=== PATIENT | female | born 1950 | race Caucasian/White ===

== ENCOUNTER → 2016-03-29 | Outpatient (CLI) | payer OTHER, MEDICAID ==
[~2016-03-29] MED LIST: HYDR-971 PO
--- NOTE | 2016-03-29 15:31 | RAD ---
EXAM: DIGITAL SCREEN BILAT W/CAD HISTORY: Routine Screening. COMPARISON: Priors including 10/30/2011 and 09/18/2010 Standard mammographic views are obtained of the bilateral breasts. This study was interpreted with the benefit of Computerized Aided Detection (CAD). FINDINGS: The breast parenchyma Is heterogenously dense, which could reduce sensitivity of mammography. Breast parenchyma level III.. There is repeat demonstration of asymmetry within the right lateral breast with architectural distortion and scattered calcifications. This has been present since at least 2010. There are also some scattered calcifications seen bilaterally. No definite new worrisome mass. IMPRESSION: No definite new suspicious mass. Repeat demonstration of architectural distortion and calcifications within the right lateral breast but these had been present for several years therefore could be from benign causes such as scarring. BI-RADS CATEGORY: 2 BENIGN FINDING RECOMMENDED FOLLOW-UP: 12M 12 MONTH FOLLOW-UP PQRS compliance statement: Patient information was entered into a reminder system with a target due date for the next mammogram. Mammography is a sensitive method for finding small breast cancers, but it does not detect them all and is not a substitute for careful clinical examination. A negative mammogram does not negate a clinically suspicious finding and should not result in delay in biopsying a clinically suspicious abnormality. "Our facility is accredited by the [employer] Mammography Program."
== END | disposition home or self-care (01) ==
LOC: MAMMO 13:01
PROVIDERS: ATTEND Family Medicine
DX: Z12.31 Encounter for screening mammogram for malignant neoplasm of breast (principal)
CPT/HCPCS: G0202; 77067

== ENCOUNTER → 2017-09-09 | Outpatient (CLI) | payer OTHER, MEDICAID | END | disposition home or self-care (01) | LOC: KCIC DEXA 10:53 | DX: Z13.820 Encounter for screening for osteoporosis (principal); M85.88 Other specified disorders of bone density and structure, other site; Z78.0 Asymptomatic menopausal state | CPT/HCPCS: 77080 ==

== ENCOUNTER → 2018-09-30 | Outpatient (CLI) | payer OTHER, MEDICAID ==
[~2018-09-30] MED LIST changes: +HYDR-3164 PO; -HYDR-971 PO
--- NOTE | 2018-09-30 11:07 | RAD ---
DATE: 09/30/2018. EXAM: DIGITAL DIAGNOSTIC RT, BREAST RIGHT HISTORY: Abnormal mammogram. COMPARISON: Most recent screening mammogram from 09/08/2018. This study was interpreted with the benefit of Computerized Aided Detection (CAD). FINDINGS: Breast Density: HETERO The breast parenchyma Is heterogeneously dense, which could reduce sensitivity of mammography. Breast parenchyma level C. Redemonstrated is an area of architectural distortion with intraluminal calcifications in the retroareolar region of the right breast. Ultrasound TECHNIQUE: Grayscale and color Doppler images of the right retroareolar breast. FINDINGS: There is a hypoechoic mass at 9:00 lesion in the retroareolar right breast approximately measuring 1.4 x 0.7 x 0.6 cm which is taller than wider. This corresponds to the abnormality seen on mammogram. IMPRESSION: Right retroareolar breast mass. BI-RADS CATEGORY: 4 SUSPICIOUS ABNORMALITY-BIOPSY SHOULD BE CONSIDERED RECOMMENDED FOLLOW-UP: BIO BIOPSY RECOMMENDED. Ultrasound guided biopsy recommended. PQRS compliance statement: Patient information was entered into a reminder system with a target due date for the next mammogram. Mammography is a sensitive method for finding small breast cancers, but it does not detect them all and is not a substitute for careful clinical examination. A negative mammogram does not negate a clinically suspicious finding and should not result in delay in biopsying a clinically suspicious abnormality. "Our facility is accredited by the [employer] Mammography Program." Findings discussed with Dr. Pastor's office and patient in person on 09/30/2018 at 11:03 AM.
== END | disposition home or self-care (01) ==
LOC: MAMMO 10:04
PROVIDERS: ATTEND Family Medicine
DX: N63.11 Unspecified lump in the right breast, upper outer quadrant (principal); N64.89 Other specified disorders of breast
CPT/HCPCS: 76641; 77065

== ENCOUNTER → 2018-10-30 | Outpatient (CLI) | payer OTHER, MEDICAID ==
--- NOTE | 2018-10-31 10:41 | RAD ---
CLINICAL INDICATION: Right breast mass, biopsy PRE-PROCEDURAL CONSULTATION: Details of the procedure and possible limitations and complications were discussed with the patient. After addressing her questions and concerns, written informed consent was obtained. A time out was then taken to verify patient's name and date of as well as site and laterality. PROCEDURE: The mass at the 9 o'clock position within the retroareolar right breast was targeted under ultrasound. The skin of the right breast was cleansed and prepped in the typical sterile fashion. 8 cc of 1% lidocaine was used for local anesthesia. A small skin incision was then made to permit passage of an 18 gauge spring activated biopsy device. 1 core specimen was obtained. Hematoma developed in the region of the retroareolar mass and obscure the underlying mass. Therefore additional specimens were unable to be obtained. Clip was unable to be deployed as the mass cannot be targeted. Hemostasis was achieved. The patient tolerated the procedure well with no immediate complications. Post-procedural digital mammographic imaging of the right breast demonstrate postbiopsy changes. IMPRESSION: Ultrasound guided core needle biopsy of a mass at the 9 o'clock position within the right breast, with only one specimen obtained. Pathology is pending, and based on pathology reports, additional biopsy can be performed or short interval follow-up diagnostic mammography and ultrasound is recommended
--- NOTE | 2018-11-04 09:07 | PATHOLOGY ---
[facility] Accession Number: [id number] . 01 Material submitted: . breast - RIGHT BREAST MASS. Modifiers: right . 01 Clinical history: . Right breast mass 9:00 retroareolar 1.4 cm . 02 Diagnosis: Breast mass, right, 9:00 retroareolar, core needle biopsy: - Scant benign ductal epithelium with focal microcalcification. - Apocrine metaplasia, focal. - Focal areas suggestive of duct ectasia. . (Please see comment) ([facility]; 10/31/2018) [facility] 10/31/2018 1247 Local . 02 Comment: The findings in this biopsy do not necessarily account for the presence of a "mass". Clinical correlation is recommended. . This case has also been reviewed by Dr. Americo Saez MD who agrees with the diagnosis. ([facility]; 10/31/2018) . 02 Electronically signed: . Jesse Suarez MD, Pathologist NPI- [id number] . 01 Gross description: . The specimen is received in formalin, labeled "Kari Minor, right". The specimen is additionally labeled on the requisition as, "right breast mass 9:00 retroareolar 1.4 cm". Received is a single needle core of fibrofatty tissue measuring 1.0 cm in length by 0.2 cm in diameter. The specimen is submitted entirely in cassette A1. The cold ischemic time is 6 minutes. The total formalin fixation time is 12 hours and 10 minutes. ([facility]; 10/30/2018) QAC/QAC 10/30/2018 1510 Local . 02 Pathologist provided ICD-10: N60.81 . 02 CPT . 907303 Specimen Comment: A courtesy copy of this report has been sent to Specimen Comment: [phone], , . Specimen Comment: Report sent to ,DR COPE / DR SHEIKH Performed at: 01 [facility] [address] [place] [address] [address], [place] [id number] MD Slade Claabrese MD Phone: [phone] Performed at: 02 [facility] [address] [place], [place] [id number] MD Hipolito Armenta MD Phone: [phone]
== END ==
LOC: US 07:42
PROVIDERS: ATTEND Family Medicine
DX: R92.0 Mammographic microcalcification found on diagnostic imaging of breast (principal); N60.81 Other benign mammary dysplasias of right breast
CPT/HCPCS: 19081; 19083; 76942; 77065; 88305

== ENCOUNTER → 2019-02-05 | Outpatient (CLI) | payer OTHER, MEDICAID ==
--- NOTE | 2019-02-05 14:12 | RAD ---
DATE: 02/05/2019. EXAM: DIGITAL DIAGNOSTIC RT, US GUID NDL PLACE/ASPI/BX. HISTORY: Right breast mass. Repeat biopsy is requested. COMPARISON: 10/30/2018. FINDINGS: Breast Density: HETERO The breast parenchyma is heterogenously dense, which could reduce sensitivity of mammography. Breast parenchyma level C.. Sonography of the right breast was performed. This reveals an irregular hypoechoic region suggesting architectural distortion at the previously biopsied site. Doppler reveals multiple foci of arterial flow about this site. The procedure along with its risks and benefits were explained to the patient, including bleeding and bruising. She agreed to proceed. A timeout procedure was performed. The overlying skin was sterilely prepped and infiltrated with 1% lidocaine for local anesthesia. Under ultrasound guidance, 2 passes were made through the hypoechoic region at the 9:00 periareolar position using a 14-gauge needle. The main surrounding vessels were avoided. A postbiopsy clip placed under ultrasound guidance. Pressure was held for 10 minutes to ensure hemostasis. There were no immediate calcifications. Digital mammography was obtained in CC and MLO projections and interpreted on a dedicated workstation. This there demonstrates the postbiopsy clip in the region of increased density/architectural distortion. IMPRESSION: 1. Successful ultrasound-guided biopsy of a hypoechoic region of architectural distortion at the right 9:00 position.
== END | disposition home or self-care (01) ==
LOC: US 08:17
PROVIDERS: ATTEND Surgery
DX: R92.8 Other abnormal and inconclusive findings on diagnostic imaging of breast (principal)
CPT/HCPCS: 19083; 77065; C1713; 19081; 76942

== ENCOUNTER → 2020-07-07 | Outpatient (CLI) | payer MEDICARE, MEDICAID ==
--- NOTE | 2020-07-07 13:29 | RAD ---
EXAM: Left shoulder, 3 views. HISTORY: Pain. COMPARISON: None. FINDINGS: 3 views of the left shoulder obtained. There is no fracture, dislocation or subluxation. Th ere is severe glenohumeral joint space narrowing with subchondral sclerosis and marginal spurring. Th ere is subchondral sclerosis within the superior humeral head which is also likely degenerative. No c ortical collapse is seen. There is no convincing osteonecrosis. There is mild acromioclavicular joint spurring. There is degenerative change involving the cervical spine. IMPRESSION: 1. Severe glenohumeral and mild acromioclavicular joint osteoarthritis. 2. No acute osseous finding. Electronically signed by: Aury Strickland MD (07/07/2020 1:27 PM) [id number]
== END ==
LOC: RAD 11:52
PROVIDERS: ATTEND Family Medicine
DX: M19.012 Primary osteoarthritis, left shoulder (principal)
CPT/HCPCS: 73030

== ENCOUNTER → 2020-12-14 | Outpatient (CLI) | payer MEDICARE, MEDICAID ==
--- NOTE | 2020-12-14 15:44 | KCIC ---
INDICATION : Routine Screening. COMPARISON: Prior examinations including January 2019 TECHNIQUE: Standard mammogram screening views of the bilateral breasts were obtained with 3D tomosynt hesis. CAD was utilized. FINDINGS: The breasts are heterogenous density. Within the retroareolar region of the left breast there is foc al asymmetry as well as architectural distortion identified. This appears slightly more prominent whe n compared to remote priors. There is also repeat demonstration of focal asymmetry and architectural distortion within the right breast seen within the retroareolar region extending into the lateral asp ect of the right breast. There is also calcifications in the area as well as a biopsy clip. This foca l asymmetry and architectural distortion also appears slightly increased when compared to remote prio r. IMPRESSION: BI-RADS Category 0: Incomplete. Further imaging evaluation is needed. Bilateral focal asymmetry as we ll as architectural distortion is identified and appears increased from remote prior. Recommend that the patient return for bilateral diagnostic mammogram and ultrasound to further assess. Recall interv al is now. The patient was placed into the recall system with a suggested recall date for follow up imaging. Mammography is the most sensitive method for finding small breast cancers, but it does not detect the m all and is not a substitute for careful clinical examination. A negative mammogram does not negate a clinically suspicious finding and should not result in delay in biopsying a clinically suspicious abnormality. Electronically signed by: Marshall Rodriguez MD (12/14/2020 3:42 PM) [id number]
--- NOTE | 2020-12-14 17:43 | KCIC ---
INDICATION: Screening for osteopenia/osteoporosis. Reason: OSTEOPENIA, POST MENOPAUSAL / Spl. Instru ctions: / History: COMPARISON: 09/09/2017 TECHNIQUE: Bone densitometry was performed through the lumbar spine and proximal femur. IMPRESSION: Lumbar Spine: BMD: 0.94 T-Score: -1.0 Range: Osteopenic. Increased by 9 percent from prior Proximal Femur: BMD: 0.79 T-Score: -1.3 Range: Osteopenic. Decreased by 4 percent from prior. World Health Organization Criteria for Bone Density: T-Score: > -1.0: Normal Range < -1.0 to -2.5: Osteopenic Range < -2.5: Osteoporotic Range Electronically signed by: Marshall Rodriguez MD (12/14/2020 5:41 PM) [id number]
== END ==
LOC: KCIC MAMMO 12:28
PROVIDERS: ATTEND Family Medicine
DX: Z12.31 Encounter for screening mammogram for malignant neoplasm of breast (principal); M85.89 Other specified disorders of bone density and structure, multiple sites; Z78.0 Asymptomatic menopausal state
CPT/HCPCS: 77063; 77067; 77080

== ENCOUNTER → 2021-01-11 | Outpatient (CLI) | payer MEDICARE, MEDICAID ==
--- NOTE | 2021-01-11 13:16 | RAD ---
CLINICAL INDICATION: CHRISTIANO CADENA, who is 70 years of age, presents for COMPARISON: Prior mammographic imaging dating back to TECHNIQUE: Diagnostic views of the right breast were obtained, utilizing digital technique. BREAST COMPOSITION: The breast tissue is heterogenously dense, which could obscure detection of small masses. MAMMOGRAM FINDINGS: Bilateral focal asymmetries and left breast architectural distortion are again seen, and persisted on the spot compression views. Therefore ultrasound of both breasts was performed. ULTRASOUND FINDINGS: Targeted ultrasound of the mammographic areas of concern was performed. Right breast: 9:00 position, 6 cm from the nipple: An anechoic avascular mass of circumscribed margins and round/ov al shape is present. It demonstrates posterior acoustic enhancement and a parallel orientation. It me asures 7 x 5 x 5 mm. 9:00 position, 4 cm from the nipple: A hypoechoic mass of circumscribed margins and round/oval shape is present, measuring 6 x 4 x 4 mm. This demonstrates internal homogenous echogenicity. Left breast: 2:30 position, 5 cm from the nipple: A 6.3 x 5 mm hypoechoic solid mass in parallel orientation with circumscribed margins is seen. IMPRESSION: 1. Bilateral breast probably benign mass for which follow up is recommended. RECOMMENDATION: In the absence of new clinical symptoms or change in physical exam, short term follow up diagnostic e xamination is recommended in 6 months to assess for interval stability. BIRADS 3: PROBABLY BENIGN Electronically signed by: Kal Duong MD (01/11/2021 1:14 PM) [email or web address]
== END ==
LOC: MAMMO 10:10
PROVIDERS: ATTEND Family Medicine
DX: R92.8 Other abnormal and inconclusive findings on diagnostic imaging of breast (principal); N63.11 Unspecified lump in the right breast, upper outer quadrant; N63.21 Unspecified lump in the left breast, upper outer quadrant
CPT/HCPCS: 77066; 76641-50